=== PATIENT | female | born 1985 | race Caucasian/White ===

== ENCOUNTER 2017-02-07 15:02 | Emergency (ER) | payer OTHER ==
[~2017-02-07] VITALS: Ht 167.6 cm; Wt 65.9 kg
[~2017-02-07 15:02] MED LIST: Ascorbic Acid PO; Docusate Sodium PO; FERR-83 PO; IBUP-1827 PO; IBUP800T28 PO; LEVO750T9 PO; OXYC1TAB24 PO; TRAM50TA2 PO; [UNRECOGNIZED DRUG - CODE] EXT
[2017-02-07 15:11] VITALS: BP 142/89; PULSE 97; RESP 16; O2SAT 100
--- NOTE | 2017-02-07 16:19 | ED.REPORT ---
HPI-Chest Pain Under 40 Date of Service Feb 07, 2017 ED Provider: Josselin Krishna MD Pt is an otherwise healthy 31 year old female who presents to the ED complaining of palpitations onset 15 minutes prior to arrival. She c/o associated left-sided dull chest discomfort and headache. She denies SOB, diaphoresis, extremity pain/swelling, fever, chills, back pain, and nausea. She also denies recent illness. The pt denies taking anything unusual today such as coffee or energy drinks. Pt reports that she was doing light work around the house when she experienced her symptoms. She describes her heart palpitations as her heart "beating really fast and irregular" intermittently. Pt takes phentermine currently and is an every day smoker. She denies taking control. She states that her heart rate is generally 55-65. Per pt, her father has a history of A-fib. Nursing Notes Stated Complaint: RAPID, IRREGULAR HEART BEAT, CHEST DISCOMFORT Chief Complaint: Chest Pain Nursing Notes Reviewed: Yes Allergies: Coded Allergies: meperidine HCl (Verified Allergy, Severe, THROAT SWELLING, 02/07/17) hydrocodone (Verified Allergy, Intermediate, vomiting, 02/07/17) Scheduled ([Ascorbic Acid]) 500 MG TABLET 500 MG PO DAILYWM ([Docusate Sodium]) 100 MG CAPSULE 100 MG PO BID Ferrous Sulfate (Ferrous Sulfate) 325 Mg Tablet 325 MG PO BIDWM Scheduled PRN Ibuprofen (Ibuprofen) 800 Mg Tablet 800 MG PO Q6H PRN PRN For Pain Ibuprofen (Ibuprofen) 600 Mg Tablet 600 MG PO QID PRN PRN For Pain Levofloxacin (Levaquin) 750 Mg Tablet 750 MG PO DAILY PRN PRN uti Tramadol (Tramadol) 50 Mg Tablet 100 MG PO Q6H PRN PRN For Pain oxyCODONE-Acetaminophen 5-325 mg (oxyCODONE-Acetaminophen 5-325 mg) 1 Tab Tablet 1-2 TAB PO Q4H PRN PRN For Pain Miscellaneous Medications VITAMIN A & D-Expunged Drug, Do Not Renew! (VITAMIN A & D-Expunged Drug, Do Not Renew!) 56.8 Gm Oint 0 EXT General Time Seen by MD: 16:08 Chief Complaint Other (Palpitations) Hx Obtained From: Patient Arrived By: Walk-in Sudden in Onset?: No Onset Occurred: Just prior to arrival Symptom Duration: Since onset Location: : Chest left Quality: Dull Radiation: : Does not radiate Migration/Movement: Reports: None Severity: Current: Moderate Severity: Maximum: Moderate Recent Healthcare: No recent doctor visit, No recent hospitalization Similar Sx Previous: No Past Medical History Past Medical History Psoriasis Reports: Migraines Past Surgical History Reports: , Tonsillectomy Reports: Tubal ligation Family History Denies family history of clotting or bleeding disorders. Father - A-fib Smoking History Current Every Day Smoker Social History Alcohol Use: Denies alcohol use Drug Use: Denies drug use Other Social History: Good social support Ambulatory Status Independent Review of Systems Constitutional: Denies: Chills, Fever Respiratory: Denies: Shortness of breath Cardiovascular: Reports: Chest pain (discomfort), Palpitations (fast and irregular) GI: Denies: Nausea Musculoskeletal: Denies: Back pain, Extremity pain, Extremity swelling Skin: Denies Diaphoresis Neurologic: Reports: Headache Complete sys rev & neg: except as marked. Physical Exam Initial Vital Signs Vital Signs (First) Date Time Temp Pulse Resp B/P Pulse Ox O2 Delivery O2 Flow Rate FiO2 02/07/17 15:11 37.1 97 16 142/89 100 Room Air Initial VS: Reviewed, Vital signs abnormal Head / Eyes: Atraumatic, Normocephalic Neck: Supple, Full range of motion Extremities: Vascular intact, Neuro intact Skin: Warm, Dry, No cyanosis Neurologic: Alert, Oriented, Nonfocal Psychiatric: Mood/affect normal, Behavior normal General/Constitutional: Awake, Alert Respiratory / Chest: Atraumatic, Breath sounds NL, Breath sounds = bilat Cardiovascular: Heart rate NL, Regular rhythm, Heart sounds NL Interpretation & Diagnostics Lab Results Interpretation Result Diagram: 02/07/17 1657 02/07/17 1657 Test 02/07/17 16:57 02/07/17 16:59 02/07/17 19:08 02/07/17 20:23 White Blood Count 11.0th/mm3 (3.8-10.1) Red Blood Count 4.35mil/mm3 (3.90-5.20) Hemoglobin 13.9g/dL (12.0-15.6) Hematocrit 41.3% (35.0-46.0) Mean Corpuscular Volume 94.9fL (81-100) Mean Corpuscular Hemoglobin 32.0pg (27.0-35.0) Mean Corpuscular Hemoglobin Concent 33.7% (32.0-37.0) Red Cell Distribution Width 13.7% (12.3-15.4) Platelet Count 282bil/L (150-400) Neutrophils (%) (Auto) 70.9% (40-74) Lymphocytes (%) (Auto) 19.3% (14-46) Monocytes (%) (Auto) 6.6% (4-12) Eosinophils (%) (Auto) 2.5% (0-5) Basophils (%) (Auto) 0.5% (0-3) D-Dimer < 0.50mg/L FEU (<0.50) Sodium Level 139mEq/L (134-144) Potassium Level 3.7mEq/L (3.5-5.2) Chloride Level 98mEq/L (97-108) Carbon Dioxide Level 25mmol/L (18-29) Blood Urea Nitrogen 9mg/dL (6-20) Creatinine 0.53mg/dL (0.57-1.00) Estimat Glomerular Filtration Rate 194mL/min (>59) Glucose Level 77mg/dL (60-99) Calcium Level 9.5mg/dL (8.5-10.1) Magnesium Level 2.0mg/dL (1.6-2.6) Total Bilirubin 0.4mg/dL (0.0-1.2) Aspartate Amino Transf (AST/SGOT) 31U/L (0-50) Alanine Aminotransferase (ALT/SGPT) 27U/L (0-32) Alkaline Phosphatase 66U/L (25-150) Total Protein 7.3g/dL (6.4-8.4) Albumin 4.8g/dL (3.4-5.0) Hold Silvestre Top Tube Received (Received) Troponin T < 0.010ug/L (0.0-0.011) Hold Urine Received (Received) ECG Interpretation ECG Interpretation: Sinus rhythm with a rate of 76 Time: 16:14 Interpreted by: ED physician X-Ray Chest Interpretation Chest Xray Interpretation: IMPRESSION: Normal for age, source of chest pain is not seen. Dictated by: Tirso Monroe M.D. on 02/07/2017 at 17:13 View: AP & lat Interpretation / Wet Read by: Interpret - Radiologist Re-Eval/Medical Decision Med Decision/Clinical Course The patient presents with palpitations and some chest heaviness. She is on phentermine and has been for a month or 2. The patient's dysrhythmia is borderline tachycardia. The patient didn't have any other abnormalities. She had 2 troponins which were negative. It is most likely that the phentermine is causing her symptoms. Initially she was also hypertensive but that resolved while she was here. A partial list of differential diagnoses considered were adverse medication reaction, pericarditis, pneumonia, pulmonary embolus, and anxiety. Source of Hx: Old records Re-Evaluation/Progress #1: Time of Eval: 16:15 Re-Evaluation/Progress Note: Informed pt of reassuring ECG, as well as plan for x-ray and labs. Pt understands and agrees with plan. All questions addressed. Re-Evaluation/Progress #2: Time of Eval: 18:38 Re-Evaluation/Progress Note: Pt rechecked. Informed pt of ecg, x-ray, and labs results, as well as plan for repeat enzymes. All questions addressed. Re-Evaluation/Progress #3: Time of Eval: 19:55 Re-Evaluation/Progress Note: Pt rechecked. Advised pt to stop taking phentermine, as well as her reassuring results. Informed pt of plan for discharge. Pt understands and agrees with plan for discharge. F/U instructions and RTER warnings given. All questions addressed. Counseled Regarding: Diagnosis, Lab results, Need for follow-up, When/why to return to ED Discharge & Departure Primary Impression: Heart palpitations Disposition: Home Discharge Condition All VS Reviewed: Yes Condition: Stable Patient Instructions: Heart Palpitations (ED) Additional Instructions: Thank you for entrusting us with your care. Your chest x-ray, labs, and ECG were all reassuring. Stop taking the phentermine. I suspect that this may be related to the symptoms that you were experiencing today. Call your primary care provider on Thursday for a follow up appointment next week. Return to the emergency department for any new or concerning symptoms. Referrals: Lashaun Hartley (PCP) Scribe Attestation Portions of this note were transcribed by Aimee Castro. I, Dr. Krishna personally performed the history, physical exam and medical decision-making; I reviewed and confirmed the accuracy of the information in the transcribed note. Signed by : Leon Strickland, 02/07/17. copies to: Lashaun Hartley Jena M MD Feb 07, 2017 16:19 Aimee De La Fuente Feb 07, 2017 16:29
[2017-02-07 17:04] LABS: BASOPHILS % (AUTO) 0.5 % (0-3); EOSINOPHILS % (AUTO) 2.5 % (0-5); MONOCYTES % (AUTO) 6.6 % (4-12); Mean Corpuscular Volume 94.9 fL (81-100); NEUTROPHILS % (AUTO) 70.9 % (40-74); Platelet Count 282 bil/L (150-400)
--- NOTE | 2017-02-07 17:15 | DRSVH ---
PROCEDURE: X-RAY CHEST, TWO VIEWS ([id number]) INDICATIONS: chest pain TECHNIQUE: 2 views of the chest were acquired. COMPARISON: None. FINDINGS: Surgical changes and devices: None. Lungs and pleura: No pleural effusions or pneumothorax. Lungs are clear. Mediastinum: Mediastinal contours are normal. Heart size is normal. Bones and chest wall: No suspicious bony abnormalities. Soft tissues appear unremarkable. IMPRESSION: Normal for age, source of chest pain is not seen. Dictated by: Tirso Monroe M.D. on 02/07/2017 at 17:13 Approved by: Tirso Monroe M.D. on 02/07/2017 at 17:13
[2017-02-07 17:45] LABS: TROPONIN T < 0.010 ug/L (0.0-0.011)
[2017-02-07 18:11] VITALS: BP 114/68; PULSE 70; RESP 16; O2SAT 99
[2017-02-07 20:06] VITALS: BP 114/67; RESP 18; O2SAT 96
== END 2017-02-07 20:06 | disposition home or self-care (01) ==
LOC: SED 15:02
DX: R00.2 Palpitations (principal); R09.89 Other specified symptoms and signs involving the circulatory and respiratory systems; R51 Headache; G43.909 Migraine, unspecified, not intractable, without status migrainosus; F17.200 Nicotine dependence, unspecified, uncomplicated; Z88.5 Allergy status to narcotic agent